=== PATIENT | male | born 1950 | race Caucasian/White ===

== ENCOUNTER → 2018-12-06 | Outpatient (REF) | payer MEDICARE, OTHER ==
[2018-12-06 08:30] LABS: ALBUMIN 4.3 g/dL (3.2-5.0); ALKALINE PHOSPHATASE 51 u/l (38-126); ANION GAP 16 (6-22 (CALC)); BILIRUBIN, TOTAL 0.8 mg/dL (0.0-1.4); BUN 19 mg/dL (8-23); BUN/CREATININE RATIO 17 (12-20 (CALC)); CALCULATED LDLCHOLESTEROL 134 mg/dL (62-129 (CALC)); CARBON DIOXIDE 26 mmol/l (22-30); CHLORIDE 104 mmol/l (95-108); CHOLESTEROL HDL RATIO 3.6 (<4.4 (CALC)); CREATININE 1.1 mg/dL (0.7-1.3); GFR > 60 ML/MIN (>=60 (CALC)); GFR FOR AFR.AMER. > 60 ML/MIN (>=60 (CALC)); HDL CHOLESTEROL 59 mg/dL (>=40); POTASSIUM 4.3 mmol/l (3.5-5.1); SGOT/AST 32 u/l (19-48); SODIUM 141 mmol/l (137-146); TOTAL CHOLESTEROL 216 mg/dl (0-199); TOTAL PROTEIN 6.9 g/dL (6.3-8.2); TOTAL TRIGLYCERIDES 114 mg/dl (30-149); VLDL CHOLESTROL 23 mg/dl (4-45 (CALC))
== END | disposition home or self-care (01) ==
LOC: LAB 06:41
PROVIDERS: ATTEND Internal Medicine Geriatric Medicine
DX: Z12.5 Encounter for screening for malignant neoplasm of prostate (principal); E78.2 Mixed hyperlipidemia

== ENCOUNTER 2022-12-26 14:55 | Emergency (ER) | payer MEDICARE, OTHER ==
[~2022-12-26] VITALS: Ht 182.9 cm; Wt 79.0 kg
[2022-12-26 15:02] VITALS: BP 123/86
[2022-12-26] MEDS ORDERED: OMNI-PAC300 MG PO (16:01)
[2022-12-26 16:11] VITALS: BP 123/86
[2022-12-26] MEDS ORDERED: MUPIROCIN21 TOP (16:15)
[2022-12-26] MEDS ORDERED: TRAMADOL HYDROC50 M1 PO (16:21)
== END 2022-12-26 16:29 | disposition home or self-care (01) ==
LOC: ED 14:55
DX: S61.011A Laceration without foreign body of right thumb without damage to nail, initial encounter (principal); I10 Essential (primary) hypertension; W27.4XXA Contact with kitchen utensil, initial encounter; Y93.G9 Activity, other involving cooking and grilling; Y92.000 Kitchen of unspecified non-institutional (private) residence as the place of occurrence of the external cause